=== PATIENT | male | born 1970 | race Hispanic/Latino ===

== ENCOUNTER 2017-02-08 22:18 | Emergency (ER) | payer MEDICARE ==
[2017-02-08 23:26] VITALS: BMI 33.9
[2017-02-08 23:34] VITALS: TEMP 100.1
--- NOTE | 2017-02-09 00:02 | ED PDOC ---
Arrival/HPI - General Chief Complaint: Lower Extremity Problem/Injury Time Seen by Provider: 02/08/17 23:37 - History of Present Illness Narrative History of Present Illness (Text): 02/09/17 00:02 Ovidio Davis is a 46 year old male, whose past medical history includes hypertension, diabetes, obesity, Alport's syndrome, and Charcot foot, who presents to the Emergency department complaining of right foot pain/swelling. Patient states yesterday he began experiencing worsening pain and swelling to his right foot, with associated fever today. Patient denies any fever, chills, chest pain, shortness of breath, nausea, vomiting, diarrhea, urinary symptoms, back pain, neck pain, headache, dizziness, or any other complaints. PMD: Dr. Yoshi Luu Time/Duration: Other (yesterday) Symptom Onset: Gradual Symptom Course: Unchanged Activities at Onset: Rest, Light Context: Home Past Medical History - Provider Review Nursing Documentation Reviewed: Yes - Cardiac Hx Hypertension: Yes - HEENT Hx HEENT Disorder: (glasses) - Renal Hx Renal Disorder: Yes (pt born with alport syndrome) Type of Dialysis Access: av fistula right arm Date of Last Dialysis Treatment: 10/13/07 - Endocrine/Metabolic Hx Diabetes Mellitus Type 2: Yes - Hematological/Oncological Hx Blood Disorders: No - Integumentary Other/Comment: redness swelling to left foot callouses to [place] and outer aspect of left great toe, dry foot ulcer bottom of foot - Musculoskeletal/Rheumatological Hx Falls: No - Gastrointestinal Hx Gastrointestinal Disorders: No - Genitourinary/Gynecological Hx Genitourinary Disorders: No - Psychiatric Hx Depression: No Hx Emotional Abuse: No Hx Physical Abuse: No Hx Substance Use: No - Surgical History Other/Comment: 1988 pt's mother donated kidney and was implanted to right lower abd stopped functioning 2005, had sx at [facility]. pt went on dialysis from 2005 to 2008, has right forearm av shunt received another kidney from a friend in 2008, had sx at [facility] in [place] it was implanted to left lower abd. Pt was born with alport syndrome. - Anesthesia Hx Anesthesia: Yes Hx Anesthesia Reactions: No Hx Malignant Hyperthermia: No - Suicidal Assessment Feels Threatened In Home Enviroment: No Family/Social History - Physician Review Nursing Documentation Reviewed: Yes Family/Social History: No Known Family HX Smoking Status: Never Smoked Hx Alcohol Use: No Hx Substance Use: No Allergies/Home Meds Allergies/Adverse Reactions: Allergies No Known Allergies Allergy (Verified 02/08/17 23:26) Home Medications: Home Meds Medication Instructions Recorded Confirmed Fenofibrate [Tricor] 145 mg PO DAILY 05/18/14 02/08/17 Leflunomide [Leflunomide] 2 tab PO DAILY 05/18/14 02/08/17 Jcrex-6-Elky Ethyl Esters [Lovaza] 1 cap PO BID 05/18/14 02/08/17 Sitagliptin Phosphate [Januvia] 100 mg PO DAILY 05/18/14 02/08/17 Tacrolimus [Prograf] 1.5 mg PO BID 05/18/14 02/08/17 Methadone [Methadone] 40 mg PO DAILY 02/08/17 02/08/17 Oxycodone HCl [Roxicodone] 90 mg PO DAILY 02/08/17 02/08/17 Review of Systems - Physician Review All systems were reviewed & negative as marked: Yes - Review of Systems Constitutional: Fevers Eyes: Normal ENT: Normal Respiratory: Normal. absent: SOB, Cough Cardiovascular: Normal. absent: Chest Pain Gastrointestinal: Normal. absent: Abdominal Pain, Diarrhea, Nausea, Vomiting Genitourinary Male: Normal. absent: Dysuria, Frequency, Hematuria, Urinary Output Changes Musculoskeletal: Normal. absent: Back Pain, Neck Pain Skin: Other (+redness/swelling/pain to right foot) Neurological: Normal Endocrine: Normal Hemo/Lymphatic: Normal Psychiatric: Normal Physical Exam Vital Signs Reviewed: Yes Vital Signs Temp Pulse Resp BP Pulse Ox 02/09/17 02:15 87 18 131/81 98 02/09/17 00:15 94 H 16 112/69 96 02/08/17 23:34 100.1 F H 98 H 16 109/73 95 Temperature: Febrile Blood Pressure: Normal Pulse: Regular Respiratory Rate: Normal Appearance: Positive for: Well-Appearing, Non-Toxic, Comfortable Pain Distress: None Mental Status: Positive for: Alert and Oriented X 3 - Systems Exam Head: Present: Atraumatic, Normocephalic Pupils: Present: PERRL Extroacular Muscles: Present: EOMI Conjunctiva: Present: Normal Mouth: Present: Moist Mucous Membranes Neck: Present: Normal Range of Motion Respiratory/Chest: Present: Clear to Auscultation, Good Air Exchange. No: Respiratory Distress, Accessory Muscle Use Cardiovascular: Present: Regular Rate and Rhythm, Normal S1, S2. No: Murmurs Abdomen: Present: Normal Bowel Sounds. No: Tenderness, Distention, Peritoneal Signs Back: Present: Normal Inspection Upper Extremity: Present: Normal Inspection. No: Cyanosis, Edema Lower Extremity: Present: Swelling (Swelling to right foot), Erythema (Erythema to right foot). No: Edema Neurological: Present: GCS=15, CN II-XII Intact, Speech Normal Skin: Present: Warm, Dry, Normal Color. No: Rashes Psychiatric: Present: Alert, Oriented x 3, Normal Insight, Normal Concentration Medical Decision Making ED Course and Treatment: 02/09/17 00:02 Impression: 46 year old male complaining of worsening pain and swelling to right foot since yesterday. Differential Diagnosis include but are not limited to: cellulitis Plan: -- Labs, blood cultures -- Reassess and disposition Progress Notes: 02/09/17 03:00 On re-evaluation, the patient feels better and is in no acute distress. pt does not want to be hospitalized needs to care for his dogs I have discussed the results and plan with the patient, who expresses understanding. Patient in agreement with plan to discharged home. Patient is stable for discharge. Patient was instructed to follow up with physician/clinic in 1-2 days or return if symptoms worsen or new concerning symptoms arise. 02/09/17 16:43 - Lab Interpretations Lab Results: 02/09/17 00:15 02/09/17 00:15 Lab Results 02/09/17 00:15: Sodium 133, Potassium 4.8, Chloride 96 L, Carbon Dioxide 26, Anion Gap 16, BUN 35 H, Creatinine 2.4 H, Est GFR ( Amer) 35, Est GFR ( Non-Af Amer) 29, Random Glucose 245 H, Calcium 9.8, Total Bilirubin 0.8, AST 28 , ALT 29, Alkaline Phosphatase 57, Total Protein 8.0, Albumin 3.9, Globulin 4.1 , Albumin/Globulin Ratio 1.0 L 02/09/17 00:15: WBC 8.3 D, RBC 4.45, Hgb 11.8 L, Hct 35.4 L, MCV 79.6 L, MCH 26.5, MCHC 33.3, RDW 13.9, Plt Count 206, MPV 9.5, Gran % 73.0 H, Lymph % (Auto ) 13.7 L, [place] % (Auto) 10.0 H, Eos % (Auto) 3.1, Baso % (Auto) 0.2, Gran # 6.05 , Lymph # 1.1 L, [place] # 0.8 H, Eos # 0.3, Baso # 0.02 I have reviewed the lab results: Yes - Medication Orders Current Medication Orders: Discontinued Medications Clindamycin Phosphate 300 mg/ (Sodium Chloride) 52 mls @ 104 mls/hr IVPB STAT STA PRN Reason: Protocol Stop: 02/09/17 02:44 Last Admin: 02/09/17 02:40 Dose: Not Given Non-Admin Reason: Patient Refused Morphine Sulfate (Morphine) 2 mg IVP STAT STA Stop: 02/09/17 02:15 Last Admin: 02/09/17 02:36 Dose: 2 mg Oxycodone/Acetaminophen (Percocet 5/325 Mg Tab) 1 tab PO STAT STA Stop: 02/09/17 02:04 Last Admin: 02/09/17 02:17 Dose: Not Given Non-Admin Reason: Patient Refused - Scribe Statement The provider has reviewed the documentation as recorded by the Scribe Rachel Muñoz All medical record entries made by the Scribe were at my direction and personally dictated by me. I have reviewed the chart and agree that the record accurately reflects my personal performance of the history, physical exam, medical decision making, and the department course for this patient. I have also personally directed, reviewed, and agree with the discharge instructions and disposition. Disposition/Present on Arrival - Present on Arrival Any Indicators Present on Arrival: No History of DVT/PE: No History of Uncontrolled Diabetes: No Urinary Catheter: No History of Decub. Ulcer: No History Surgical Site Infection Following: None - Disposition Have Diagnosis and Disposition been Completed?: Yes Diagnosis: Cellulitis of foot, right Disposition: HOME/ ROUTINE Disposition Time: 03:00 Condition: GOOD Discharge Instructions (ExitCare): Cellulitis (ED) Prescriptions: Clindamycin [Cleocin] 300 mg PO QID #40 cap Referrals: Ben Luu JD, MD [Primary Care Provider] - Follow up with primary
[2017-02-09 00:28] LABS: ADD MANUAL DIFF? NO
[2017-02-09 00:32] LABS: BASO # 0.02 K/mm3 (0.0-2.0); BASO % 0.2 % (0.0-3.0); EOS # 0.3 (0.0-0.7); EOS % 3.1 % (1.5-5.0); GRAN # 6.05 (1.4-6.5); HEMATOCRIT 35.4 % (42.0-52.0); LYMPH # 1.1 (1.2-3.4); LYMPH % 13.7 % (22.0-35.0); MEAN CELL VOLUME 79.6 fL (80.0-105.0); MEAN CORPUSCULAR HEMOGLOBIN 26.5 pg (25.0-35.0); MEAN CORPUSCULAR HGB CONC 33.3 g/dl (31.0-37.0); MEAN PLATELET VOLUME 9.5 fl (7.0-11.0); MONO # 0.8 (0.1-0.6); PLATELET COUNT 206 10^3/uL (120.0-450.0); RED CELL DISTRIBUTION WIDTH 13.9 % (11.5-14.5); WHITE BLOOD COUNT 8.3 10^3/ul (4.5-11.0)
[2017-02-09 00:44] LABS: BILIRUBIN,TOTAL 0.8 mg/dL (0.2-1.3); CALCIUM 9.8 mg/dL (8.4-10.5); POTASSIUM 4.8 mmol/L (3.6-5.0)
[2017-02-09] MEDS ORDERED: Oxycodone/Acetaminophen 5/325 mg Tab PO STA (02:03)
[2017-02-09] MEDS ORDERED: Morphine 2 mg/ml ISec IVP STA (02:14)
[2017-02-09] MEDS ORDERED: Clindamycin 300 MG in Sodium Chloride 0.9% 50 ML IVPB STA (02:15)
[2017-02-09 02:42] VITALS: BP 131/81; PULSE 87; RESP 18; O2SAT 98
== END 2017-02-09 03:00 | disposition home or self-care (01) ==
LOC: ED 22:18
DX: L03.115 Cellulitis of right lower limb (principal)
CPT/HCPCS: 80053; 85025; 87040; 96374; 99285; J2270